=== PATIENT | male | born 2000 | race Caucasian/White ===

== ENCOUNTER 2022-06-30 11:42 | Emergency (ER) | payer BC, MEDICAID ==
[~2022-06-30] VITALS: Ht 167.6 cm; Wt 63.5 kg
[2022-06-30] MEDS ORDERED: SILVER SULFADIAZINE 1%, 25 GM TOPICAL CREAM (SSD) TP ONE (12:00)
[2022-06-30] MEDS ORDERED: MORPHINE SULFATE 10 MG/ML VIAL IM ONE (12:00)
[2022-06-30 12:06] VITALS: BP_SYST 134
[2022-06-30 13:20] VITALS: BP_SYST 134
== END 2022-06-30 13:26 | disposition home or self-care (01) ==
LOC: SED 11:42
DX: T23.152A Burn of first degree of left palm, initial encounter (principal); X16.XXXA Contact with hot heating appliances, radiators and pipes, initial encounter; Y93.89 Activity, other specified; Y92.89 Other specified places as the place of occurrence of the external cause; Y99.8 Other external cause status
CPT/HCPCS: 99283; 16020; 96372; J2270